=== PATIENT | male | born 2000 | race Caucasian/White ===

== ENCOUNTER 2025-02-09 04:31 | Emergency (ER) | payer MEDICAID, SELFPAY ==
--- NOTE | 2025-02-09 04:30 | DI.RAD_ITS ---
Exam(s) XR HAND RT COMPLETE EXAM: XR HAND RT COMPLETE CLINICAL HISTORY: deep laceration 4th digit. TECHNIQUE: 2D digital imaging was performed. COMPARISON: No exams were available for comparison FINDINGS: 3 views No evidence of fracture or dislocation. However, there is a laceration on the volar aspect of the 4th-ring finger at level of the middle phalanx. There are also 3 similar-appearing deep linear type foreign bodies at this level. The other fingers unremarkable. IMPRESSION: Fourth finger laceration and foreign bodies as described above. No fractures evident. DATA REPOSITORY: RADIATION DOSE DELIVERED:
[2025-02-09 04:36] VITALS: BP 171/95; PULSE 62; RESP 16; TEMP 35.7; O2SAT 97
--- NOTE | 2025-02-09 04:42 | W.ED.GENAD ---
Discharge Plan Disposition Patient Disposition: Home Condition: Good Discharge Details Clinical Impression: Laceration of finger, Nerve injury Primary Care Provider: Av Rodriguez ED Provider: Fozia Aleman Home Meds and New Rx's Prescriptions: New cephalexin 500 mg tablet 500 mg PO QID 7 Days Qty: 28 0RF cephalexin 500 mg capsule 500 mg PO QID 7 Days Qty: 28 0RF Discontinued naproxen 500 MG tablet 500 mg PO PRN PRN Aspirin/Acetaminophen/Caffeine [Excedrin Migraine Caplet] 1 EACH Tablet 1 ea PO DAILY PRN ibuprofen 200 MG tablet 800 mg PO DAILY PRN Discharge Instructions Additional Instructions: Antibiotic 4 times a day until you see hand surgery at [facility]. [facility] [place] [facility] [place] you to schedule an appointment. If you do not hear from them today, please call them at [phone] to schedule. Return to the emergency department for new or worsening symptoms including worsening pain or swelling in your finger, thick green or white discharge from your cut, inability to move your finger, worsening numbness or tingling, or if you have any other concerns. HPI General Mode of arrival: ambulatory. Date/Time Provider Initiated Documentation: 02/09/25 04:32. Limitations to Documentation: no limitations. Information obtained by: patient. HPI Narrative: 24yo M presenting with laceration to right hand. Was walking his dog, lead caught on his 4th finger and cut it. Cannot feel the tip of his finger. Able to move all digits. No dog bite. Unknown last tetanus. In his usual state of health prior to this event. Related Data Home Medications ?Medication ?Instructions ?Recorded ?Confirmed cephalexin 500 mg capsule 500 mg PO QID 7 days #28 caps 02/09/25 cephalexin 500 mg tablet 500 mg PO QID 7 days #28 tabs 02/09/25 Previous Rx's ?Medication ?Instructions ?Recorded cephalexin 500 mg capsule 500 mg PO QID 7 days #28 caps 02/09/25 cephalexin 500 mg tablet 500 mg PO QID 7 days #28 tabs 02/09/25 Allergies Allergy/AdvReac Type Severity Reaction Status Date / Time No Known Allergies Allergy Unverified 02/09/25 04:38 General Stated Complaint: Laceration HELEN: 3 Review of Systems Narrative: see HPI Exam Narrative Exam Narrative: General: Alert, well appearing, well nourished, in no acute distress. Head: Normocephalic, atraumatic Neck: Trachea midline, ?Neck supple. Cardiac: ?RRR Resp: No respiratory distress. Speaking in full sentences. Abd: ?Non-distended Extremities: -RUE 3rd digit shallow laceration over middle phalanx to flexor and lateral surface; does not involve extensor surface, hemostatic. Laceration on extensor surface of DIP lateral to nail;, no involvement of nail or nailbed, hemostatic -RUE 4th digit with deep laceration over middle phalanx on flexor and medial/lateral surfaces; does not involve extensor surface, slow non-pulsatile bleeding without identifiable culprit vessel. Full symmetric abrasive grader strength. Intact opposition thumb to all digits RUE. Extensor function intact all digits. Flexion at 4th DIP diminished strength Capillary refill intact all digits RUE. Diminished sensation distal to laceration 4th digit. Course Vital Signs Vital signs: Vital Signs Temperature 35.7 C L 02/09/25 04:36 Pulse 62 02/09/25 04:36 Respiratory Rate 16 02/09/25 04:36 Blood Pressure 171/95 H 02/09/25 04:36 Pulse Oximetry 97 02/09/25 04:36 Temperature 35.7 C L 02/09/25 04:36 Temperature Source Tympanic 02/09/25 04:36 Pulse 62 02/09/25 04:36 Respiratory Rate 16 02/09/25 04:36 Blood Pressure 171/95 H 02/09/25 04:36 Pulse Oximetry 97 02/09/25 04:36 Procedure Laceration Laceration 1: Date of Procedure: 02/09/25 Time of procedure: 07:10 Standard Time Out Performed: Yes Patient Consented: Verbally Site: hand Side (If applicable): right (3rd digit) Description: flap Depth: simple, single layer Local anesthetic: Lidocaine 2% Amount of anesthesia used (mL): 1 Pre-repair:: wound explored, irrigated extensively and deep structures intact Skin layer closed with: nylon Suture size: 6-0 Number of sutures:: 2 Technique: simple, interrupted Laceration 2: Date of Procedure: 02/09/25 Time of procedure: 07:10 Patient Consented: Verbally Site: hand Side (If applicable): right (4th digit) Description: irregular Depth: involves tendon (tendon not visualized; likely involves tendon based on exam) Local anesthetic: Lidocaine 2% Amount of anesthesia used (mL): 4 Pre-repair:: wound explored and irrigated extensively Skin layer closed with: nylon Number of sutures:: 8 Technique: simple, interrupted Suture size: 5-0 Medical Decision Making 24yo M presenting with laceration to right hand; cut on lead while walking dog. 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 Hypertensive on arrival, vital signs otherwise reassuring. Tylenol and toradol for pain; tetanus booster given. Multiple lacerations to digits of right hand, most notably deep laceration to flexor surface of 4th digit with diminished sensation distally and decreased strength with flexion at DIP (though does move through full ROM). Wound thoroughly irrigated. XR independently reviewed; no large foreign body or displaced fracture on my view. Radiology with at least three small densities deep in the soft tissue. Concern for nerve and partial tendon injury based on exam. Discussed with [facility] orthopedics Dr. Ohara; with potential nerve and flexor tendon injury would not repair here. Advised dose of Ancef which was ordered. D[place]ed with [facility] [place], on for hand; case discussed and he did not feel it required emergent transfer/surgery, repair within one week would be appropriate. Plan for closure here, irrigation to attempt to remove foreign bodies (if retained remains appropriate for outpatient followup), and dc on antibiotics. Laceration on 3rd digit near nail repaired with 2 simple interrupted sutures. Other 3rd digit laceration does not require sutures. Began repair of laceration on 4th digit; mid-repair onset of pulsatile bleeding. Unable to visualize target vessel. Spoke again with Dr. Ohara who came to bedside for repair (see his note for details); good hemostasis obtained. Discharged home to followup with [facility]; prescribed 7 day course of keflex. Discharge instructions and return precautions were reviewed with patient who verbalized understanding. All questions were answered and he is in full agreement with the plan. [facility] All Active Problems (Updated 02/09/25 @ 08:39 by Fozia Aleman MD) Nerve injury (Acute) Laceration of finger (Acute) Social History Smoking/Tobacco Use Status: Never Smoking risk assessment performed?: Yes Alcohol Intake: never Drug use: Never Substance use type: marijuana Do you feel safe in your relationship?: Yes
[2025-02-09] MEDS: Ketorolac 15 MG/ML VIAL IM (05:13)
[2025-02-09] MEDS: Acetaminophen 500 MG TAB 1000 MG PO (05:13)
[2025-02-09] MEDS: Lidocaine 2% Multi-Dose 50 ML VIAL IJ (05:13)
[2025-02-09] MEDS: Tetanus & Diphtheria Tox,ADULT 0.5 ML VIAL IM (05:13)
--- NOTE | 2025-02-09 05:24 | DI.VRAD_ITS ---
PROCEDURE INFORMATION: Exam: XR Right Hand Exam date and time: 02/09/2025 4:54 AM Age: 24 years old Clinical indication: Injury or trauma; Right; Ring finger; Injury date: 02/09/25; Deep laceration of 4th digit TECHNIQUE: Imaging protocol: Radiologic exam of the right hand. Views: 3 or more views. COMPARISON: No relevant prior studies available. FINDINGS: Laceration in the volar soft tissues overlying the middle phalanx of the 4th digit. At least 3 small linear radiodensities in the deep soft tissues at this level, suspicious for small foreign bodies. Correlate clinically. IMPRESSION: Laceration with foreign bodies as above. Dictated and Authenticated by: Annemarie Huntley MD. Orderin Love Marcelo MD
[2025-02-09 07:55] VITALS: BP 132/68; PULSE 59; RESP 20; O2SAT 98
--- NOTE | 2025-02-09 07:55 | OCONE_ITS ---
Date of service: 02/09/25 Time of Service: 09:02 Assessment and Plan Assessment and plan (1) Laceration of left ring finger: Status: Acute Assessment and plan: 24-year-old male with left ring finger deep laceration over the middle phalanx a with ulnar digital nerve and artery transection and partial terrence injury (C2 and/or A4), but flexor tendons appeared intact Called emergently to emergency room due to left ring finger laceration pulsatile bleeding. Patient had already been evaluated and the laceration partially closed and then there was bleeding that was felt to be too significant to continue. The emergency room and already called me a couple hours prior to review this injury concerning for deep laceration involving flexor tendons and digital nerves with [facility] and urgent hand surgery follow-up to be arranged. Prior hand issues of this finger. 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 Left ring finger injured an old dog lead, which was metal and somewhat sharp and strangulated and then lacerated his finger. He immediately presented to the emergency room earlier this morning. There was bleeding at the time of injury, but was under control during the ER evaluation. Finger was reportedly densely numb, but has already been anesthetized with lidocaine on my presentation. He reportedly had full range of motion but decreased strength and with a laceration over the middle phalanx concerning for zone 2 flexor tendon complex problems. When I arrived to the bedside, the patient was holding gauze over the ulnar margin of his laceration. When he remove the gauze there was some small pulsatile bleeding likely from an ulnar digital vessel. The central to radial part of the wound had been closed with 6-0 Prolene. His fingertip did have rather dense numbness, but again had already had lidocaine anesthesia. A glove was wrapped around the finger base proximally as a tourniquet. The wound was irrigated and cleansed with peroxide. The wound was deep to the flexor tendons about 270 degrees volar from radial to ulnar. I opened a number of the small Prolene's centrally to better inspect the injury. The digital nerve and vessel could not really be seen, but were then able to be found small and retracted proximally along the ulnar margin in the clump of fatty tissue. Deeply FDP could be seen intact and DIP joint flexion was intact. FDS flexion at the PIP joint independently was intact as well, but this tendon could not be seen. There was a partial ulnar-sided laceration to a terrence over the middle phalanx and it was difficult to tell whether this was C2 or more likely A4. The area of the digital vessel was localized and pulled into the wound area and suture ligated with 4-0 Monocryl. The tourniquet was then removed and there was no active bleeding. A second 4-0 Monocryl was then placed adjacent to this area as backup and to ensure no active bleeding later on due to vessel spasm or other problem. There was slight ooze from the wound. Deeply the Monocryl was used to repair a couple simple stitches the terrence and deep tissue margins with the flexor deep profundus gliding well under this repair. There was still an active bleeding. The superficial tissues were copiously irrigated. Skin was then closed with 4-0 Prolene reasonable spacing to allow for some drainage and avoiding over constraining the irregular and somewhat macerated tissue margins. The skin was copiously irrigated. There was no active bleeding. Patient tolerated the procedure well under local anesthesia. Instructions given to the patient, his mother, in the emergency room for antibiotics, dressing with Xeroform, gauze and secure with Kerlix and/or Bg bandage. Patient will ensure there extension and gentle flexion without opening the wound protecting the finger to prevent stiffness. First dressing change in about 2-3 days after soaking in 50: 50 mixture for about 10 minutes hydroperoxide and water or saline. Reapply Xeroform, gauze and secure with Kerlix and/or Bg bandage for as long as there is drainage. When dry, may simply cover with a wide Band-Aid. Follow-up next week as arranged with [facility] hand legal process specialist for possible digital nerve(s) repair, but if the patient has improving or relatively good sensation, he may choose to follow- up with me here locally to manage this finger nonoperatively. With a brief note done due to surgery schedule (2) Injury of digital nerve of left ring finger: Status: Acute PFSH All Active Problems (Updated 02/09/25 @ 09:03 by Lucas Fry MD) Injury of digital nerve of left ring finger (Acute) Laceration of left ring finger (Acute 02/09/25) Social History Smoking/Tobacco Use Status: Never Smoking risk assessment performed?: Yes Alcohol Intake: never Drug use: Never Substance use type: marijuana Do you feel safe in your relationship?: Yes Results Last Vital Signs Temp 96.3 F L 02/09/25 04:36 Pulse 62 02/09/25 04:36 Resp 16 02/09/25 04:36 BP 171/95 H 02/09/25 04:36 Pulse Ox 97 02/09/25 04:36
[2025-02-09] MEDS: Hydrogen Peroxide 3% 480 ML BTL (09:13)
== END 2025-02-09 09:12 | disposition home or self-care (01) ==
PROVIDERS: Emergency Provider Student in an Organized Health Care Education/Training Program; PCP Family Medicine
DX: S64.495A Injury of digital nerve of left ring finger, initial encounter; S61.224A Laceration with foreign body of right ring finger without damage to nail, initial encounter; Z23 Encounter for immunization; W45.8XXA Other foreign body or object entering through skin, initial encounter; Y93.K1 Activity, walking an animal; Y92.89 Other specified places as the place of occurrence of the external cause; S61.215A Laceration without foreign body of left ring finger without damage to nail, initial encounter
CPT/HCPCS: 12001; 13131; 90471; 90714; 96365; 96372; 99284; 73130; J0690; J1885; J2003